=== PATIENT | female | born 1985 | race African-American/Black ===

== ENCOUNTER 2018-11-14 15:06 | Emergency (ER) | payer MEDICAID ==
[~2018-11-14] VITALS: Ht 162.6 cm; Wt 70.2 kg
[2018-11-14 15:10] VITALS: BP 117/69; PULSE 80; RESP 18; Ht 162.6 cm; Wt 70.2 kg
[2018-11-14] MEDS ORDERED: KETOROLAC 30 MG INJ IM STA (15:29)
[2018-11-14] MEDS ORDERED: IBUP-1542 PO (15:50)
[2018-11-14] MEDS ORDERED: ACET500C5 PO (15:50)
--- NOTE | 2018-11-14 16:12 | ERD ---
ER Documentation Chief Complaint Chief Complaint C/O H/A FOR A MONTH; NO NEURO DEFICIT NOTED. DENIES N/V. HPI This is a 33-year-old female patient presents emergency room with complaint of chronic headaches x1 month. States that she has sharp pain moves all around the head at different times. No nausea, no vomiting, no visual disturbance, no weakness, no dizziness, no fever. Patient presents with her 2 very small children that are running around the room and screaming, patient seems very stressed out. Reports a little sleep and little help at home with her children. Denies thoughts of harming herself or others. States she is currently on her menstrual cycle. ROS All systems reviewed and are negative except as per history of present illness. Medications Home Meds Active Scripts Acetaminophen* (Tylophen*) 500 Mg Capsule, 2 CAP PO Q8H PRN for PAIN AND OR ELEVATED TEMP for 10 Days, #20 CAP Prov:RICO BALDWIN NP 11/14/18 Ibuprofen* (Motrin*) 600 Mg Tab, 600 MG PO Q6 for 10 Days, #30 TAB Prov:RICO BALDWIN NP 11/14/18 Allergies Allergies: Coded Allergies: No Known Allergy (Unverified , 11/14/18) PMhx/Soc Medical and Surgical Hx: pt denies Medical Hx History of Surgery: No Hx Neurological Disorder: No Hx Respiratory Disorders: No Hx Cardiac Disorders: No Hx Psychiatric Problems: No Hx Miscellaneous Medical Probl: No Hx Alcohol Use: No Hx Substance Use: No Hx Tobacco Use: No Smoking Status: Never smoker FmHx Family History: No diabetes, No coronary disease, No other Physical Exam Vitals Vital Signs Date Temp Pulse Resp B/P (MAP) Pulse Ox O2 O2 Flow FiO2 Time Delivery Rate 11/14/18 98.0 80 18 117/69 100 15:10 (85) Physical Exam Const: No acute distress Head: Atraumatic Eyes: Normal Conjunctiva, PERRL, EOMI, no nystagmus ENT: Normal External Ears, TM clear BL, Nose and Mouth. Neck: Full range of motion. No meningismus. No lymphadenopathy, cervical spinal tenderness, FROM of neck Resp: Clear to auscultation bilaterally Cardio: Regular rate and rhythm, no murmurs Abd: Soft, non tender, non distended. Normal bowel sounds Skin: No petechiae or rashes, Back: No midline or flank tenderness, -CVT, spinal tenderness, full range of motion Ext: No cyanosis, or edema Neur: Awake and alert, CN II-XII, steady gait, negative Romberg, sensation intact bilaterally, food scientist strength 5/5 Psych: Normal Mood and Affect Results 24 hrs Laboratory Tests Test 11/14/18 15:40 Bedside Urine pH (LAB) 7.5 Bedside Urine Protein (LAB) Negative Bedside Urine Glucose (UA) Negative Bedside Urine Ketones (LAB) Negative Bedside Urine Blood 2+ Bedside Urine Nitrite (LAB) Negative Bedside Urine Leukocyte Esterase (L Negative POC Beta HCG, Qualitative NEGATIVE Current Medications Medications Dose Sig/Mary Start Time Status Last (Trade) Ordered Route PRN Stop Time Admin Dose Reason Admin Ketorolac 30 mg ONCE STAT 11/14/18 DC 11/14/18 Tromethamine IM 15:29 15:44 (Toradol) 11/14/18 15:30 Procedures/MDM PROCEDURES/MDM DIAGNOSTIC IMAGING: Read by radiologist. None indicated at this time LAB INTERPRETATION: Urinalysis negative for UTI or -Medications: Toradol Patient tolerated medication well with no adverse reactions. Patient reported improvement in pain. MDM: This is a 33-year-old female patient who presents emergency room with complaint of headache x1 month. No nausea vomiting fever or visual disturbance. No neuro deficits noted on exam. Patient states she has history of having headaches and she has been taking Tylenol and ibuprofen without much relief. She states the pain is sharp and is in different places travels around her head at different times. She is unable to relate to a trigger however she cares for 2 very young very active children and self reports that she does not get very good nutrition, hydration, or sleep. The patient was well-appearing with VSS and without neurological deficits at time of reevaluation and discharge. Clinical and diagnostic exam not suggestive of infection, intracranial process, SAH, SDH, neoplasm, meningitis, encephalitis, aneurysm, thrombus, temporal arteritis, sinusitis. The patient has been provided with instructions on self-care including use of analgesia, reducing triggers, and need for close follow-up with primary care physician within 1-2 days for reevaluation. The patient has been instructed to return immediately for worsening symptoms, change in pattern of current symptoms, or other acute problems. DISPOSITION and PLAN: RX: Ibuprofen, Tylenol The patient has been discharge home to follow-up with community physician. Departure Diagnosis: Primary Impression: Tension headache Condition: Stable Patient Instructions: Tension Headaches Referrals: [facility] YOU HAVE RECEIVED A MEDICAL SCREENING EXAM AND THE RESULTS INDICATE THAT YOU DO NOT HAVE A CONDITION THAT REQUIRES URGENT TREATMENT IN THE EMERGENCY DEPARTMENT. FURTHER EVALUATION AND TREATMENT OF YOUR CONDITION CAN WAIT UNTIL YOU ARE SEEN IN YOUR DOCTORS OFFICE WITHIN THE NEXT 1-2 DAYS. IT IS YOUR RESPONSIBILITY TO MAKE AN APPOINTMENT FOR FOLOW-UP CARE. IF YOU HAVE A PRIMARY DOCTOR --you should call your primary doctor and schedule an appointment IF YOU DO NOT HAVE A PRIMARY DOCTOR YOU CAN CALL OUR PHYSICIAN REFERRAL HOTLINE AT IF YOU CAN NOT AFFORD TO SEE A PHYSICIAN YOU CAN CHOSE FROM THE FOLLOWING [facility] [address] [facility]. [facility] [address] [facility]. [facility] [address] [facility] [facility] [address] [facility] [facility] [address] [facility]. [facility] [address] [facility]. [facility] YOU HAVE RECEIVED A MEDICAL SCREENING EXAM AND THE RESULTS INDICATE THAT YOU DO NOT HAVE A CONDITION THAT REQUIRES URGENT TREATMENT IN THE EMERGENCY DEPARTMENT. FURTHER EVALUATION AND TREATMENT OF YOUR CONDITION CAN WAIT UNTIL YOU ARE SEEN IN YOUR DOCTORS OFFICE WITHIN THE NEXT 1-2 DAYS. IT IS YOUR RESPONSIBILITY TO MAKE AN APPOINTMENT FOR FOLOW-UP CARE. IF YOU HAVE A PRIMARY DOCTOR --you should call your primary doctor and schedule and appointment IF YOU DO NOT HAVE A PRIMARY DOCTOR YOU CAN CALL OUR PHYSICIAN REFERRAL HOTLINE AT . IF YOU CAN NOT AFFORD TO SEE A PHYSICIAN YOU CAN CHOSE FROM THE FOLLOWING [facility] INSTITUTIONS: [facility] [address] [place] [address] [facility] [address] [place] [address] [facility] + [facility] [address] [place] [address] Additional Instructions: Thank you very much for allowing us to participate in your care. Your health and safety is our top priority at [facility]. Call your primary care doctor TOMORROW for an appointment during the next 2-4 days and bring all the information and medications prescribed. Have prescriptions filled and follow precisely the directions on the label. If the symptoms get worse and your provider is unavailable, return to the Emergency Department immediately. RICO BALDWIN NP Nov 14, 2018 16:08
== END 2018-11-14 16:03 | disposition home or self-care (01) ==
LOC: FTE 15:06
DX: G44.209 Tension-type headache, unspecified, not intractable (principal)
CPT/HCPCS: 81003; 81025; 96372; J1885; Z7502

== ENCOUNTER 2018-12-05 15:31 | Emergency (ER) | payer MEDICAID ==
[~2018-12-05] VITALS: Ht 157.5 cm; Wt 77.0 kg
[~2018-12-05 15:31] MED LIST: ACET500C5 PO; IBUP-1542 PO
[2018-12-05 15:38] VITALS: BP 123/72; PULSE 80; RESP 18; Ht 157.5 cm; Wt 77.0 kg
--- NOTE | 2018-12-05 15:51 | EN ---
Date/Time of Note Date/Time of Note DATE: 12/05/18 TIME: 15:51 ER Progress Note Patient with multiple bruises of unknown etiology. CBC ordered JANET GOLDSTEIN PA-C Dec 05, 2018 15:51
--- NOTE | 2018-12-05 21:48 | ERD ---
ER Documentation Chief Complaint Chief Complaint here due spontaneous echymosis, last menses normal HPI 33-year-old female previously healthy presents to the emergency department complaining of scattered bruising on her body for the past 3 weeks intermittently. She denies any bleeding of her gums, fevers, chills, falls, or other symptoms. She first noticed a bruise on her left leg 3 weeks ago and then noticed a bruise on her left arm several days ago. Symptoms are mild. She denies any other symptoms at this time. ROS All systems reviewed and are negative except as per history of present illness. Medications Home Meds Active Scripts Acetaminophen* (Tylophen*) 500 Mg Capsule, 2 CAP PO Q8H PRN for PAIN AND OR ELEVATED TEMP for 10 Days, #20 CAP Prov:RICO BALDWIN NP 11/14/18 Ibuprofen* (Motrin*) 600 Mg Tab, 600 MG PO Q6 for 10 Days, #30 TAB Prov:RICO BALDWIN NP 11/14/18 Allergies Allergies: Coded Allergies: No Known Allergy (Unverified , 11/14/18) PMhx/Soc Medical and Surgical Hx: pt denies Medical Hx History of Surgery: No Anesthesia Reaction: No Hx Neurological Disorder: No Hx Respiratory Disorders: No Hx Cardiac Disorders: No Hx Psychiatric Problems: No Hx Miscellaneous Medical Probl: No Hx Alcohol Use: No Hx Substance Use: No Hx Tobacco Use: No Smoking Status: Never smoker FmHx Family History: No diabetes Physical Exam Vitals Vital Signs Date Temp Pulse Resp B/P (MAP) Pulse Ox O2 O2 Flow FiO2 Time Delivery Rate 12/05/18 99.2 80 18 123/72 99 15:38 (89) Physical Exam Const: No acute distress Head: Atraumatic Eyes: Normal Conjunctiva ENT: Normal External Ears, Nose and Mouth. Neck: Full range of motion. No meningismus. Resp: Clear to auscultation bilaterally Cardio: Regular rate and rhythm, no murmurs Skin: No petechiae or rashes Back: No midline or flank tenderness Ext: Small bruise noted to the left upper arm without surrounding erythema. No rashes. Neur: Awake and alert Psych: Normal Mood and Affect Result Diagram: 12/05/18 0046 Results 24 hrs Laboratory Tests Test 12/05/18 16:37 White Blood Count 4.7 10^3/ul Red Blood Count 4.14 10^6/ul Hemoglobin 11.5 g/dl Hematocrit 35.8 % Mean Corpuscular Volume 86.5 fl Mean Corpuscular Hemoglobin 27.8 pg Mean Corpuscular Hemoglobin Concent 32.1 g/dl Red Cell Distribution Width 13.2 % Platelet Count 161 10^3/UL Mean Platelet Volume 11.1 fl Immature Granulocytes % 0.200 % Neutrophils % % Segmented Neutrophils % (Manual) 32 % Lymphocytes % % Lymphocytes % (Manual) 58 % Monocytes % % Monocytes % (Manual) 8 % Eosinophils % % Eosinophils % (Manual) 2 % Basophils % % Nucleated Red Blood Cells % 2 % Immature Granulocytes # 0.010 10^3/ul Neutrophils # 10^3/ul Lymphocytes (Manual) 2.7 10^3/ul Lymphocytes # 10^3/ul Monocytes # 10^3/ul Monocytes # (Manual) 0.3 10^3/ul Eosinophils # 10^3/ul Basophils # 10^3/ul Nucleated Red Blood Cells # 10^3/ul Platelet Estimate NORMAL Giant Platelets 1 % Poikilocytosis 2+ Procedures/MDM Patient presents for scattered bruising on her body. Evidence of bicytopenia on CBC. No evidence of pancytopenia, severe anemia, or other emergent process. Patient is nontoxic and well-appearing with stable vital signs. She will be discharged home for further outpatient work-up. She was given copies of her results and she understood return precautions prior to discharge. Departure Diagnosis: Primary Impression: Bicytopenia Condition: Fair Patient Instructions: Anemia, Type Not Specified (Adult), White Cell Count Referrals: [facility] YOU HAVE RECEIVED A MEDICAL SCREENING EXAM AND THE RESULTS INDICATE THAT YOU DO NOT HAVE A CONDITION THAT REQUIRES URGENT TREATMENT IN THE EMERGENCY DEPARTMENT. FURTHER EVALUATION AND TREATMENT OF YOUR CONDITION CAN WAIT UNTIL YOU ARE SEEN IN YOUR DOCTORS OFFICE WITHIN THE NEXT 1-2 DAYS. IT IS YOUR RESPONSIBILITY TO MAKE AN APPOINTMENT FOR FOLOW-UP CARE. IF YOU HAVE A PRIMARY DOCTOR --you should call your primary doctor and schedule an appointment IF YOU DO NOT HAVE A PRIMARY DOCTOR YOU CAN CALL OUR PHYSICIAN REFERRAL HOTLINE AT IF YOU CAN NOT AFFORD TO SEE A PHYSICIAN YOU CAN CHOSE FROM THE FOLLOWING [facility] [address] [facility]. [facility] [address] [facility]. [facility] [address] [facility] [address] [facility] [address] [facility]. [facility] [address] Additional Instructions: Call your primary care doctor TOMORROW for an appointment during the next 1-2 days.See the doctor sooner or return here if your condition worsens before your appointment time. ANDI DUPONT PA-C Dec 05, 2018 21:48
== END 2018-12-05 18:02 | disposition home or self-care (01) ==
LOC: FTE 15:31
DX: D61.818 Other pancytopenia (principal)
CPT/HCPCS: 36415; 85025; Z7502; 99283